=== PATIENT | male | born 1995 | race Two or more races ===

== ENCOUNTER 2019-05-12 22:26 | Emergency (ER) | payer OTHER ==
[~2019-05-12] VITALS: Ht 162.6 cm; Wt 65.8 kg
[2019-05-13] MEDS ORDERED: PROMETH-CODEIN 65 ML PO (02:31)
== END 2019-05-13 02:35 | disposition home or self-care (01) ==
LOC: ER 22:26
DX: J06.9 Acute upper respiratory infection, unspecified (principal)